=== PATIENT | female | born 1970 | race Caucasian/White ===

== ENCOUNTER 2022-09-11 21:38 | Emergency (ER) | payer OTHER ==
[~2022-09-11] VITALS: Ht 162.6 cm; Wt 104.3 kg
[2022-09-11 23:33] VITALS: O2SAT 100
== END 2022-09-11 23:41 | disposition home or self-care (01) ==
LOC: ER 21:55
DX: S00.83XA Contusion of other part of head, initial encounter (principal); R51.9 Headache, unspecified; W18.39XA Other fall on same level, initial encounter; Y92.89 Other specified places as the place of occurrence of the external cause
CPT/HCPCS: 99282